=== PATIENT | female | born 1930 | race African-American/Black ===

== ENCOUNTER 2017-09-12 23:52 | Emergency (ER) | payer OTHER ==
[~2017-09-12] VITALS: Ht 160 cm; Wt 63.5 kg
[2017-09-13] MEDS ORDERED: LEVOXYL50 MCG (00:08)
[2017-09-13] MEDS ORDERED: PLAVIX75 MG (00:09)
[2017-09-13] MEDS ORDERED: ZANTAC150 MG (00:09)
[2017-09-13] MEDS ORDERED: SIMVASTATIN40 MG (00:09)
[2017-09-13] MEDS ORDERED: SINGULAIR 10MG10 MG (00:09)
[2017-09-13] MEDS ORDERED: AMLODIPINE BESYL5 MG (00:09)
[2017-09-13] MEDS ORDERED: RESTORIL30 M1 (00:10)
[2017-09-13] MEDS ORDERED: CLONAZEPAM0.5 MG (00:10)
[2017-09-13] MEDS ORDERED: METOPROLOL SUCC25 MG (00:10)
== END 2017-09-13 06:18 | disposition home or self-care (01) ==
LOC: ER 23:52
DX: R20.0 Anesthesia of skin (principal)